=== PATIENT | male | born 1995 | race Caucasian/White ===

== ENCOUNTER 2018-03-12 18:31 | Emergency (ER) | payer BC ==
[2018-03-12 19:28] VITALS: BP 152/85
--- NOTE | 2018-03-12 19:42 | UC ---
UC General HPI - HPI Summary HPI Summary: 1. white growth on L hand for about 2 months. he pick and scrapes it off but it regrows. 2. rash on l inner thigh for over 2 months. + itching. - History of Current Complaint Chief Complaint: UCSkin Stated Complaint: RASH Time Seen by Provider: 03/12/18 19:31 Hx Obtained From: Patient Onset/Duration: Gradual Onset Timing: Constant Pain Intensity: 0 Associated Signs & Symptoms: Negative: Fever - Allergy/Home Medications Allergies/Adverse Reactions: Allergies Allergy/AdvReac Type Severity Reaction Status Date / Time No Known Allergies Allergy Verified 03/12/18 19:24 PMH/Surg Hx/FS Hx/Imm Hx Previously Healthy: Yes - Surgical History Surgical History: Yes Surgery Procedure, Year, and Place: Tonsils - Family History Known Family History: Positive: Non-Contributory - Social History Alcohol Use: Weekly Substance Use Type: None Smoking Status (MU): Never Smoked Tobacco Review of Systems All Other Systems Reviewed And Are Negative: Yes Constitutional: Positive: Negative Eyes: Positive: Negative ENT: Positive: Negative Respiratory: Positive: Negative Cardiovascular: Positive: Negative Gastrointestinal: Positive: Negative Genitourinary: Positive: Negative Motor: Positive: Negative Neurovascular: Positive: Negative Musculoskeletal: Positive: Negative Neurological: Positive: Negative Psychological: Positive: Negative Physical Exam Triage Information Reviewed: Yes Appearance: Well-Appearing Vital Signs: Initial Vital Signs Temp 97.1 F 03/12/18 19:24 Pulse 66 03/12/18 19:24 Resp 16 03/12/18 19:24 BP 152/85 03/12/18 19:24 Pulse Ox 99 03/12/18 19:24 Vital Signs Reviewed: Yes Eyes: Positive: Conjunctiva Clear ENT: Positive: Normal ENT inspection Neck: Positive: Supple Respiratory: Positive: No respiratory distress Cardiovascular: Positive: RRR Abdomen Description: Positive: Nontender Musculoskeletal: Positive: ROM Intact Neurological: Positive: Alert Psychological: Positive: Age Appropriate Behavior Skin Exam: Normal, Other - 1. 2-3 mm white soft tissue growth near base of L index finger. No red or fluctuant 2. Faint pink ring to L inner thigh with some central clearing and fine scale to edges. No inguinal adenopathy. Course/Dx - Course Course Of Treatment: NO HX HTN, BP VISIT RELATED - Differential Dx - Multi-Symptom Differential Diagnoses: Other - L hand lesion is most likely a wart and the inner thigh is c/w ring worm. will tx thigh with antifungal and refer to dermatology for tx of lesion on L hand. - Diagnoses Provider Diagnosis: Skin lesion of hand, Groin ringworm Discharge - Sign-Out/Discharge Documenting (check all that apply): Patient Departure All imaging exams completed and their final reports reviewed: No Studies - Discharge Plan Condition: Stable Disposition: HOME Prescriptions: Ketoconazole 2 % CREAM (NF) [Nizoral 2% CREAM (NF)] 1 applic TOPICAL BID 30 Days #60 gm Patient Education Materials: Tinea Corporis (ED), Common Wart (ED) Referrals: Mary Arriaga [Medical Doctor] - As Soon As Possible - Billing Disposition and Condition Condition: STABLE Disposition: Home
== END 2018-03-12 20:01 | disposition home or self-care (01) ==
LOC: UCCORT 18:31
DX: L98.8 Other specified disorders of the skin and subcutaneous tissue (principal); B35.6 Tinea cruris
CPT/HCPCS: 99202; G0463